=== PATIENT | female | born 1970 | race Caucasian/White ===

== ENCOUNTER 2023-06-10 19:02 | Emergency (ER) | payer MEDICAID ==
[~2023-06-10] VITALS: Ht 167.6 cm; Wt 108.4 kg
[2023-06-10 19:30] VITALS: BP 140/90; PULSE 75; RESP 17; TEMP 98.4; O2SAT 96
[2023-06-10 19:59] LABS: BASOPHILS # (AUTO) 0.1 K/uL (0.00-0.22); BASOPHILS % (AUTO) 0.7 % (0.0-2.0); EOSINOPHILS # (AUTO) 0.3 K/uL (0-0.4); EOSINOPHILS % (AUTO) 3.4 % (0.0-4.0); HEMATOCRIT 36.4 % (36-48); HEMOGLOBIN 12.2 g/dL (12.0-16.0); LYMPHOCYTES % (AUTO) 20.8 % (20.5-51.1); MEAN CORPUSCULAR HEMOGLOBIN 30 pg (27-31); MEAN CORPUSCULAR HGB CONC 33 g/dL (33-37); MEAN CORPUSCULAR VOLUME 88.7 fL (80-94); MONOCYTES # (AUTO) 0.7 K/uL (0.8-1.0); MONOCYTES % (AUTO) 7.7 % (1.7-9.3); NEUTROPHILS # (AUTO) 6.4 K/uL (1.8-7.7); NEUTROPHILS % (AUTO) 67.4 % (42.2-75.2); PLATELET COUNT (AUTO) 278 K/uL (140-450); RED BLOOD CELL COUNT(AUTO) 4.11 MIL/uL (4.20-5.40); RED CELL DISTRIBUTION WIDTH 13.4 % (11.6-13.7); WHITE BLOOD COUNT (AUTO) 9.4 K/uL (4.8-10.8)
[2023-06-10 20:19] LABS: ALBUMIN 3.4 g/dL (3.4-5.0); ANION GAP 11.7 (8-16); CALCIUM 8.4 mg/dL (8.5-10.1); CARBON DIOXIDE 30.8 mmol/L (21-32); CREATININE 1.3 mg/dL (0.6-1.3); POTASSIUM 3.5 mmol/L (3.5-5.1); TOTAL BILIRUBIN 0.3 mg/dL (0.0-1.0); TOTAL PROTEIN, SERUM 7.6 g/dL (6.4-8.2)
[2023-06-10 20:43] LABS: APPEARANCE,URINE CLEAR (CLEAR); BILIRUBIN,URINE NEGATIVE (NEGATIVE); BLOOD, URINE 2+ (NEGATIVE); COLOR,URINE YELLOW (YELLOW); LEUKOCYTE ESTERASE ,URINE NEGATIVE (NEGATIVE); NITRITE, URINE NEGATIVE (NEGATIVE); PROTEIN,URINE NEGATIVE (NEGATIVE); UGLUCOSE NEGATIVE (NEGATIVE); UROBILINOGEN,URINE 0.2 EU/dL (0.2 - 1)
[2023-06-10 21:08] LABS: BACTERIA,URINE FEW /HPF (None Seen); MUCUS,URINE 3+ /LPF (None Seen); RBC,URINE 11-20 (MOD) /HPF (0-5); SQUAMOUS EPITHELIAL CELL,UR 4-10 (MOD) /LPF (0-3 (FEW)); TRICHOMONAS,URINE None Seen /HPF (None Seen); WBC,URINE 0-5 /HPF (0-5); YEAST,URINE None Seen /HPF (None Seen)
[2023-06-11] MEDS ORDERED: IBUP-2213 PO (01:06)
[2023-06-11 01:37] VITALS: BP 137/68; PULSE 73; RESP 18; TEMP 98.3; O2SAT 97
== END 2023-06-11 01:37 | disposition home or self-care (01) ==
LOC: MED 19:02
DX: R10.84 Generalized abdominal pain (principal); R35.0 Frequency of micturition; Z85.41 Personal history of malignant neoplasm of cervix uteri; Z90.49 Acquired absence of other specified parts of digestive tract; Z79.899 Other long term (current) drug therapy
CPT/HCPCS: 36415; 80053; 81001; 83690; 85025; 99284

== ENCOUNTER 2024-04-01 16:24 | Inpatient (IN) | payer MEDICAID ==
[~2024-04-01] VITALS: Ht 167.6 cm; Wt 59.0 kg
[~2024-04-01 16:24] MED LIST: MEDR2.5T PO
[2024-04-01 16:36] VITALS: BP 156/87; PULSE 72; RESP 18; TEMP 98; O2SAT 96
[2024-04-01 18:17] LABS: BASOPHILS # (AUTO) 0.1 K/uL (0.00-0.22); BASOPHILS % (AUTO) 1.1 % (0.0-2.0); EOSINOPHILS # (AUTO) 0.5 K/uL (0-0.4); EOSINOPHILS % (AUTO) 5.3 % (0.0-4.0); HEMATOCRIT 22.3 % (36-48); HEMOGLOBIN 7.5 g/dL (12.0-16.0); LYMPHOCYTES # (AUTO) 1.3 K/uL (2.5-16.5); LYMPHOCYTES % (AUTO) 12.3 % (20.5-51.1); MEAN CORPUSCULAR HEMOGLOBIN 30 pg (27-31); MEAN CORPUSCULAR HGB CONC 33 g/dL (33-37); MEAN CORPUSCULAR VOLUME 88.4 fL (80-94); MONOCYTES # (AUTO) 0.9 K/uL (0.8-1.0); MONOCYTES % (AUTO) 8.9 % (1.7-9.3); NEUTROPHILS # (AUTO) 7.4 K/uL (1.8-7.7); NEUTROPHILS % (AUTO) 72.4 % (42.2-75.2); PLATELET COUNT (AUTO) 267 K/uL (140-450); RED BLOOD CELL COUNT(AUTO) 2.53 MIL/uL (4.20-5.40); RED CELL DISTRIBUTION WIDTH 14.3 % (11.6-13.7); WHITE BLOOD COUNT (AUTO) 10.2 K/uL (4.8-10.8)
[2024-04-01 18:32] LABS: ANION GAP 29.4 (8-16); CALCIUM 7.1 mg/dL (8.5-10.1); CARBON DIOXIDE 14.9 mmol/L (21-32)
[2024-04-01 18:35] LABS: POTASSIUM 6.3 mmol/L (3.5-5.1)
[2024-04-01 18:36] LABS: CREATININE 22.7 mg/dL (0.6-1.3)
[2024-04-01 18:43] LABS: INR 1.06 (0.8-1.2); PROTHROMBIN TIME 11.1 secs (10.8-13.4)
[2024-04-01] MEDS ORDERED: LORazepam 2 MG/ML VIAL IVP PRN (19:55)
[2024-04-01 21:48] VITALS: BP 153/71; PULSE 67; RESP 18; TEMP 97.2; O2SAT 94
[2024-04-02 04:00] VITALS: BP 156/73; PULSE 86; RESP 18; TEMP 98.5; O2SAT 98
[2024-04-02 09:49] LABS: BASOPHILS # (AUTO) 0.1 K/uL (0.00-0.22); BASOPHILS % (AUTO) 0.8 % (0.0-2.0); EOSINOPHILS # (AUTO) 0.3 K/uL (0-0.4); EOSINOPHILS % (AUTO) 4.2 % (0.0-4.0); LYMPHOCYTES # (AUTO) 0.7 K/uL (2.5-16.5); MEAN CORPUSCULAR HEMOGLOBIN 30 pg (27-31); MEAN CORPUSCULAR HGB CONC 34 g/dL (33-37); MEAN CORPUSCULAR VOLUME 87.3 fL (80-94); MONOCYTES # (AUTO) 0.7 K/uL (0.8-1.0); MONOCYTES % (AUTO) 8.7 % (1.7-9.3); NEUTROPHILS # (AUTO) 5.9 K/uL (1.8-7.7); NEUTROPHILS % (AUTO) 77.3 % (42.2-75.2); PLATELET COUNT (AUTO) 227 K/uL (140-450); RED BLOOD CELL COUNT(AUTO) 2.25 MIL/uL (4.20-5.40); RED CELL DISTRIBUTION WIDTH 13.8 % (11.6-13.7); WHITE BLOOD COUNT (AUTO) 7.6 K/uL (4.8-10.8)
[2024-04-02 10:09] LABS: HEMATOCRIT 19.7 % (36-48); HEMOGLOBIN 6.6 g/dL (12.0-16.0)
[2024-04-02 10:12] LABS: ALBUMIN 2.4 g/dL (3.4-5.0); CALCIUM 7.5 mg/dL (8.5-10.1); CARBON DIOXIDE 24.6 mmol/L (21-32); MAGNESIUM 1.9 mg/dL (1.8-2.4); PHOSPHORUS 7.7 mg/dL (2.5-4.9); POTASSIUM 4.6 mmol/L (3.5-5.1); TOTAL BILIRUBIN 0.4 mg/dL (0.0-1.0); TOTAL PROTEIN, SERUM 5.9 g/dL (6.4-8.2)
[2024-04-02 10:15] LABS: CREATININE 15.2 mg/dL (0.6-1.3)
[2024-04-02 12:00] VITALS: BP 144/79; PULSE 75; RESP 18; TEMP 97.8; O2SAT 95
[2024-04-02 14:45] VITALS: BP_SYST 133; BP_DIAS 4; BP_DIAS 74; PULSE 73; RESP 18; TEMP 98.4; O2SAT 95
[2024-04-02 15:00] VITALS: BP 137/70; PULSE 71; RESP 18; TEMP 98.4; O2SAT 96
[2024-04-02] MEDS: ONDANSETRON 4 MG/2 ML VIAL IVP PRN (15:21)
[2024-04-02 17:05] VITALS: BP 154/80; PULSE 71; RESP 18; TEMP 97.8; O2SAT 96
[2024-04-02 20:00] VITALS: BP 140/59; PULSE 71; RESP 18; TEMP 98; O2SAT 95
[2024-04-02 23:55] LABS: BASOPHILS # (AUTO) 0.1 K/uL (0.00-0.22); BASOPHILS % (AUTO) 0.8 % (0.0-2.0); EOSINOPHILS # (AUTO) 0.2 K/uL (0-0.4); EOSINOPHILS % (AUTO) 2.3 % (0.0-4.0); HEMATOCRIT 21.6 % (36-48); HEMOGLOBIN 7.2 g/dL (12.0-16.0); LYMPHOCYTES % (AUTO) 13.6 % (20.5-51.1); MEAN CORPUSCULAR HEMOGLOBIN 29 pg (27-31); MEAN CORPUSCULAR HGB CONC 33 g/dL (33-37); MEAN CORPUSCULAR VOLUME 88.4 fL (80-94); MONOCYTES # (AUTO) 0.7 K/uL (0.8-1.0); MONOCYTES % (AUTO) 10.2 % (1.7-9.3); NEUTROPHILS # (AUTO) 5.2 K/uL (1.8-7.7); NEUTROPHILS % (AUTO) 73.1 % (42.2-75.2); PLATELET COUNT (AUTO) 193 K/uL (140-450); RED BLOOD CELL COUNT(AUTO) 2.45 MIL/uL (4.20-5.40); RED CELL DISTRIBUTION WIDTH 14.1 % (11.6-13.7); WHITE BLOOD COUNT (AUTO) 7.1 K/uL (4.8-10.8)
[2024-04-03 04:00] VITALS: BP 152/81; PULSE 68; RESP 18; TEMP 97.8; O2SAT 97
[2024-04-03 08:00] VITALS: BP 145/70; PULSE 73; RESP 18; TEMP 97.3; O2SAT 100
[2024-04-03] MEDS: amLODIPine 5 MG TAB PO SCH (08:26)
[2024-04-03 08:28] LABS: BASOPHILS % (AUTO) 0.6 % (0.0-2.0); EOSINOPHILS # (AUTO) 0.3 K/uL (0-0.4); EOSINOPHILS % (AUTO) 3.2 % (0.0-4.0); HEMATOCRIT 23.8 % (36-48); LYMPHOCYTES % (AUTO) 11.8 % (20.5-51.1); MEAN CORPUSCULAR HEMOGLOBIN 30 pg (27-31); MEAN CORPUSCULAR HGB CONC 34 g/dL (33-37); MEAN CORPUSCULAR VOLUME 88.6 fL (80-94); MONOCYTES % (AUTO) 11.1 % (1.7-9.3); NEUTROPHILS # (AUTO) 6.5 K/uL (1.8-7.7); NEUTROPHILS % (AUTO) 73.3 % (42.2-75.2); PLATELET COUNT (AUTO) 212 K/uL (140-450); RED BLOOD CELL COUNT(AUTO) 2.68 MIL/uL (4.20-5.40); RED CELL DISTRIBUTION WIDTH 14.3 % (11.6-13.7); WHITE BLOOD COUNT (AUTO) 8.9 K/uL (4.8-10.8)
[2024-04-03 08:36] LABS: ANION GAP 20.8 (8-16); CALCIUM 8.1 mg/dL (8.5-10.1); CARBON DIOXIDE 21.7 mmol/L (21-32); POTASSIUM 4.5 mmol/L (3.5-5.1)
[2024-04-03 08:41] LABS: CREATININE 11.7 mg/dL (0.6-1.3)
[2024-04-03 16:00] VITALS: BP 143/80; PULSE 68; RESP 18; TEMP 98.3; O2SAT 96
[2024-04-03 20:00] VITALS: BP 141/78; PULSE 79; RESP 18; TEMP 98; O2SAT 95
[2024-04-03] MEDS: ZOLPIDEM 5 MG TAB PO PRN (20:44)
[2024-04-03] MEDS ORDERED: ZOLPIDEM 5 MG TAB PO SCH (21:00)
[2024-04-04 04:00] VITALS: BP 117/85; PULSE 71; RESP 18; TEMP 98.3; O2SAT 95
[2024-04-04 06:50] LABS: BASOPHILS # (AUTO) 0.1 K/uL (0.00-0.22); BASOPHILS % (AUTO) 0.8 % (0.0-2.0); EOSINOPHILS # (AUTO) 0.4 K/uL (0-0.4); EOSINOPHILS % (AUTO) 4.6 % (0.0-4.0); HEMATOCRIT 24.9 % (36-48); HEMOGLOBIN 8.3 g/dL (12.0-16.0); LYMPHOCYTES # (AUTO) 1.2 K/uL (2.5-16.5); LYMPHOCYTES % (AUTO) 14.3 % (20.5-51.1); MEAN CORPUSCULAR HEMOGLOBIN 30 pg (27-31); MEAN CORPUSCULAR HGB CONC 33 g/dL (33-37); MEAN CORPUSCULAR VOLUME 88.4 fL (80-94); MONOCYTES % (AUTO) 11.3 % (1.7-9.3); NEUTROPHILS # (AUTO) 5.9 K/uL (1.8-7.7); PLATELET COUNT (AUTO) 228 K/uL (140-450); RED BLOOD CELL COUNT(AUTO) 2.82 MIL/uL (4.20-5.40); RED CELL DISTRIBUTION WIDTH 14.2 % (11.6-13.7); WHITE BLOOD COUNT (AUTO) 8.5 K/uL (4.8-10.8)
[2024-04-04 07:13] LABS: CALCIUM 8.6 mg/dL (8.5-10.1)
[2024-04-04 07:40] LABS: CREATININE 9.6 mg/dL (0.6-1.3)
[2024-04-04 08:00] VITALS: BP 159/90; PULSE 62; PULSE 79; RESP 18; RESP 19; TEMP 98; TEMP 99; O2SAT 95
[2024-04-04] MEDS: medroxyPROGESTERone 10 MG TAB PO SCH (11:40)
[2024-04-04] MEDS: hydrALAZINE 20 MG/ML VIAL IVP PRN (18:45)
[2024-04-04 20:00] VITALS: BP 143/65; PULSE 80; RESP 18; TEMP 98.3; O2SAT 95; O2SAT 96
[2024-04-05 04:00] VITALS: BP 142/86; PULSE 74; RESP 18; TEMP 98.1; O2SAT 96
[2024-04-05 08:00] VITALS: PULSE 72; RESP 18; TEMP 99.3; O2SAT 98
[2024-04-05 16:00] VITALS: BP 142/76; PULSE 72; RESP 18; TEMP 98.7; O2SAT 98
[2024-04-05 20:00] VITALS: PULSE 84; RESP 18; TEMP 98.3; O2SAT 96
[2024-04-05] MEDS: SIMETHICONE 80 MG TAB.CHEW PO PRN (21:57)
[2024-04-05] MEDS: levETIRAcetam 500 MG TAB ONE (23:09)
[2024-04-06] VITALS: BP 145/63; PULSE 70; RESP 18; TEMP 98.2; O2SAT 96
[2024-04-06 06:09] LABS: HEPATITIS A ANTIBODY IGM Negative (Negative); HEPATITIS B CORE AB TOTAL Negative (Negative); HEPATITIS B CORE, IGM Negative (Negative); HEPATITIS B SURFACE ANTIBODY Reactive (.); HEPATITIS B SURFACE ANTIGEN Negative (Negative); HEPATITIS C VIRUS ANTIBODY Non Reactive (Non Reactive)
[2024-04-06 07:31] LABS: BASOPHILS # (AUTO) 0.1 K/uL (0.00-0.22); BASOPHILS % (AUTO) 0.6 % (0.0-2.0); EOSINOPHILS # (AUTO) 0.3 K/uL (0-0.4); EOSINOPHILS % (AUTO) 3.1 % (0.0-4.0); HEMATOCRIT 21.9 % (36-48); HEMOGLOBIN 7.5 g/dL (12.0-16.0); LYMPHOCYTES % (AUTO) 9.6 % (20.5-51.1); MEAN CORPUSCULAR HEMOGLOBIN 30 pg (27-31); MEAN CORPUSCULAR HGB CONC 34 g/dL (33-37); MEAN CORPUSCULAR VOLUME 88.2 fL (80-94); MONOCYTES # (AUTO) 0.8 K/uL (0.8-1.0); MONOCYTES % (AUTO) 7.6 % (1.7-9.3); NEUTROPHILS # (AUTO) 8.2 K/uL (1.8-7.7); NEUTROPHILS % (AUTO) 79.1 % (42.2-75.2); PLATELET COUNT (AUTO) 197 K/uL (140-450); RED BLOOD CELL COUNT(AUTO) 2.48 MIL/uL (4.20-5.40); RED CELL DISTRIBUTION WIDTH 13.8 % (11.6-13.7); WHITE BLOOD COUNT (AUTO) 10.4 K/uL (4.8-10.8)
[2024-04-06 07:46] LABS: ANION GAP 14.9 (8-16); CALCIUM 8.1 mg/dL (8.5-10.1); CARBON DIOXIDE 26.5 mmol/L (21-32); POTASSIUM 4.4 mmol/L (3.5-5.1)
[2024-04-06 07:54] LABS: CREATININE 10.3 mg/dL (0.6-1.3)
[2024-04-06 08:00] VITALS: BP 142/68; PULSE 75; PULSE 78; RESP 18; TEMP 97.5; TEMP 97.6; O2SAT 97
[2024-04-06 10:29] LABS: HEPATITIS A ANTIBODY TOTAL Positive (Negative)
[2024-04-06 14:31] VITALS: BP 142/68; PULSE 75; RESP 18; TEMP 97.5
[2024-04-06] MEDS ORDERED: AMLO-3 PO (15:21)
[2024-04-06] MEDS ORDERED: MEDR10TA33 PO (15:21)
== END 2024-04-06 16:30 | disposition home or self-care (01) | DRG 425 ==
LOC: MED 16:24 → MMU 19:53 → MTU 21:34
PROVIDERS: ADMIT Student in an Organized Health Care Education/Training Program; ATTEND Student in an Organized Health Care Education/Training Program
PROC: 5A1D70Z Performance of Urinary Filtration, Intermittent, Less than 6 Hours Per Day (ICD-10-PCS; principal; 2024-04-02)
PROC: 30233N1 Transfusion of Nonautologous Red Blood Cells into Peripheral Vein, Percutaneous Approach (ICD-10-PCS; 2024-04-02)
PROC: 5A1D70Z Performance of Urinary Filtration, Intermittent, Less than 6 Hours Per Day (ICD-10-PCS; 2024-04-03)
PROC: 5A1D70Z Performance of Urinary Filtration, Intermittent, Less than 6 Hours Per Day (ICD-10-PCS; 2024-04-04)
PROC: 5A1D70Z Performance of Urinary Filtration, Intermittent, Less than 6 Hours Per Day (ICD-10-PCS; 2024-04-04)
PROC: 5A1D70Z Performance of Urinary Filtration, Intermittent, Less than 6 Hours Per Day (ICD-10-PCS; 2024-04-06)
DX: E87.5 Hyperkalemia (principal); I12.0 Hypertensive chronic kidney disease with stage 5 chronic kidney disease or end stage renal disease; E44.1 Mild protein-calorie malnutrition; N18.6 End stage renal disease; D63.1 Anemia in chronic kidney disease; D25.0 Submucous leiomyoma of uterus; E87.1 Hypo-osmolality and hyponatremia; I10 Essential (primary) hypertension; N92.0 Excessive and frequent menstruation with regular cycle; N93.9 Abnormal uterine and vaginal bleeding, unspecified; Z79.899 Other long term (current) drug therapy; Z88.5 Allergy status to narcotic agent; Z88.8 Allergy status to other drugs, medicaments and biological substances; Z99.2 Dependence on renal dialysis; Z85.41 Personal history of malignant neoplasm of cervix uteri; Z68.21 Body mass index [BMI] 21.0-21.9, adult
CPT/HCPCS: 36415; 36430; 80048; 80053; 83735; 84100; 85025; 85610; 86704; 86706; 86708; 86709; 86803; 86886; 86900; 86901; 86920; 87081; 87340; 90935; 93005; 99291; 99292; J0360; J1644; J2405; P9016

== ENCOUNTER 2024-04-18 16:38 | Inpatient (IN) | payer MEDICAID ==
[~2024-04-18] VITALS: Ht 167.6 cm; Wt 92.6 kg
[~2024-04-18 16:38] MED LIST changes: +AMLO-3 PO; +MEDR10TA33 PO; -MEDR2.5T PO
[2024-04-18 17:00] VITALS: BP 182/103; PULSE 85; RESP 18; TEMP 97.8; O2SAT 95
[2024-04-18 18:11] LABS: BASOPHILS # (AUTO) 0.1 K/uL (0.00-0.22); BASOPHILS % (AUTO) 0.7 % (0.0-2.0); EOSINOPHILS # (AUTO) 0.3 K/uL (0-0.4); EOSINOPHILS % (AUTO) 2.9 % (0.0-4.0); HEMOGLOBIN 7.5 g/dL (12.0-16.0); LYMPHOCYTES # (AUTO) 1.1 K/uL (2.5-16.5); LYMPHOCYTES % (AUTO) 11.7 % (20.5-51.1); MEAN CORPUSCULAR HEMOGLOBIN 29 pg (27-31); MEAN CORPUSCULAR HGB CONC 33 g/dL (33-37); MEAN CORPUSCULAR VOLUME 88.7 fL (80-94); MONOCYTES # (AUTO) 0.7 K/uL (0.8-1.0); MONOCYTES % (AUTO) 7.2 % (1.7-9.3); NEUTROPHILS # (AUTO) 7.3 K/uL (1.8-7.7); NEUTROPHILS % (AUTO) 77.5 % (42.2-75.2); PLATELET COUNT (AUTO) 312 K/uL (140-450); RED CELL DISTRIBUTION WIDTH 14.3 % (11.6-13.7); WHITE BLOOD COUNT (AUTO) 9.4 K/uL (4.8-10.8)
[2024-04-18 18:23] LABS: ANION GAP 15.3 (8-16); CARBON DIOXIDE 31.9 mmol/L (21-32); POTASSIUM 4.2 mmol/L (3.5-5.1)
[2024-04-18 18:25] LABS: CREATININE 8.8 mg/dL (0.6-1.3)
[2024-04-18 18:29] LABS: ALBUMIN 2.9 g/dL (3.4-5.0); BILIRUBIN,DIRECT 0.1 mg/dL (0.0-0.3); TOTAL BILIRUBIN 0.3 mg/dL (0.0-1.0); TOTAL PROTEIN, SERUM 6.6 g/dL (6.4-8.2)
[2024-04-18 19:03] LABS: APPEARANCE,URINE CLOUDY (CLEAR); BILIRUBIN,URINE NEGATIVE (NEGATIVE); BLOOD, URINE 3+ (NEGATIVE); COLOR,URINE RED (YELLOW); LEUKOCYTE ESTERASE ,URINE TRACE (NEGATIVE); NITRITE, URINE NEGATIVE (NEGATIVE); PH,URINE 8.5 (5.0-9.0); PROTEIN,URINE 3+ (NEGATIVE); UGLUCOSE NEGATIVE (NEGATIVE); UROBILINOGEN,URINE 0.2 EU/dL (0.2 - 1)
[2024-04-18 19:08] LABS: RBC,URINE TOO NUMEROUS TO COUN /HPF (0-5)
[2024-04-18 19:09] LABS: BACTERIA,URINE None Seen /HPF (None Seen); SQUAMOUS EPITHELIAL CELL,UR None Seen /LPF (0-3 (FEW)); WBC,URINE NONE SEEN /HPF (0-5)
[2024-04-18 21:38] VITALS: O2SAT 97
[2024-04-18] MEDS: KETOROLAC 60 MG/2 ML VIAL IM ONE (22:05)
[2024-04-18] MEDS: SODIUM PHOSPHATE 118 ML ENEM RC ONE (22:30)
[2024-04-19] VITALS (9 sets, daily range): BP systolic 158–168; BP diastolic 95–102; PULSE 78–92; RESP 18–19; TEMP 97–98.5; O2SAT 95–99
[2024-04-19] MEDS: BOWEL EVACUANT DRINK 4,000 ML PDS PO ONE (00:13)
[2024-04-19] MEDS ORDERED: AMLO5TAB PO (00:41)
[2024-04-19] MEDS ORDERED: MEDR10TA PO (00:41)
[2024-04-19] MEDS ORDERED: DOCU-2 PO (00:41)
[2024-04-19] MEDS ORDERED: MEDR2.5T PO (00:41)
[2024-04-19] MEDS: LACTULOSE 20 GM/30 ML UDC PO SCH ×2 (09:47→15:35)
[2024-04-19] MEDS: EPOETIN ALFA-EPBX 10,000 UNITS/ML VIAL IV SCH (12:05)
[2024-04-19] MEDS: LACTULOSE 20 GM/30 ML UDC PO PRN (12:35)
[2024-04-19] MEDS ORDERED: ZOLPIDEM 5 MG TAB PO PRN (15:15)
[2024-04-19] MEDS ORDERED: LORazepam 1 MG TAB PO PRN (15:15)
[2024-04-19] MEDS: KETOROLAC 30 MG/ML VIAL IVP PRN (15:32)
[2024-04-19] MEDS: amLODIPine 5 MG TAB PO SCH (15:34)
[2024-04-19] MEDS: SENNA 8.6 MG TAB PO SCH (15:34)
[2024-04-19] MEDS: SIMETHICONE 80 MG TAB.CHEW PO PRN (21:12)
[2024-04-19] MEDS: hydrALAZINE 20 MG/ML VIAL IVP PRN (21:16)
[2024-04-20] VITALS (9 sets, daily range): BP systolic 118–153; BP diastolic 69–99; PULSE 84–99; RESP 18–20; TEMP 96.8–98.6; O2SAT 93–99
[2024-04-20 07:12] LABS: BASOPHILS % (AUTO) 0.2 % (0.0-2.0); EOSINOPHILS # (AUTO) 0.1 K/uL (0-0.4); EOSINOPHILS % (AUTO) 0.5 % (0.0-4.0); HEMATOCRIT 23.5 % (36-48); HEMOGLOBIN 7.6 g/dL (12.0-16.0); LYMPHOCYTES # (AUTO) 0.6 K/uL (2.5-16.5); LYMPHOCYTES % (AUTO) 3.5 % (20.5-51.1); MEAN CORPUSCULAR HEMOGLOBIN 29 pg (27-31); MEAN CORPUSCULAR HGB CONC 32 g/dL (33-37); MEAN CORPUSCULAR VOLUME 88.3 fL (80-94); MONOCYTES # (AUTO) 0.8 K/uL (0.8-1.0); MONOCYTES % (AUTO) 5.3 % (1.7-9.3); NEUTROPHILS # (AUTO) 14.4 K/uL (1.8-7.7); NEUTROPHILS % (AUTO) 90.5 % (42.2-75.2); PLATELET COUNT (AUTO) 314 K/uL (140-450); RED BLOOD CELL COUNT(AUTO) 2.66 MIL/uL (4.20-5.40); RED CELL DISTRIBUTION WIDTH 14.4 % (11.6-13.7); WHITE BLOOD COUNT (AUTO) 15.9 K/uL (4.8-10.8)
[2024-04-20 07:33] LABS: ALBUMIN 2.9 g/dL (3.4-5.0); ANION GAP 17.4 (8-16); CALCIUM 8.1 mg/dL (8.5-10.1); CARBON DIOXIDE 28.5 mmol/L (21-32); POTASSIUM 4.9 mmol/L (3.5-5.1); TOTAL BILIRUBIN 0.4 mg/dL (0.0-1.0); TOTAL PROTEIN, SERUM 6.8 g/dL (6.4-8.2)
[2024-04-20 07:39] LABS: CREATININE 8.4 mg/dL (0.6-1.3)
[2024-04-20] MEDS: PANTOPRAZOLE 40 MG INJ VIAL IVP SCH (08:41)
[2024-04-20] MEDS: DOCUSATE SODIUM 100 MG GELCAP PO SCH (08:42)
[2024-04-20] MEDS: ONDANSETRON 4 MG/2 ML VIAL IVP PRN (15:50)
[2024-04-21 04:00] VITALS: BP 138/92; PULSE 79; RESP 18; TEMP 98.5; O2SAT 98
[2024-04-21 06:38] LABS: BASOPHILS % (AUTO) 0.5 % (0.0-2.0); EOSINOPHILS # (AUTO) 0.3 K/uL (0-0.4); EOSINOPHILS % (AUTO) 6.4 % (0.0-4.0); HEMATOCRIT 21.4 % (36-48); LYMPHOCYTES # (AUTO) 0.6 K/uL (2.5-16.5); LYMPHOCYTES % (AUTO) 13.9 % (20.5-51.1); MEAN CORPUSCULAR HEMOGLOBIN 29 pg (27-31); MEAN CORPUSCULAR HGB CONC 33 g/dL (33-37); MEAN CORPUSCULAR VOLUME 88.5 fL (80-94); MONOCYTES # (AUTO) 0.7 K/uL (0.8-1.0); MONOCYTES % (AUTO) 16.5 % (1.7-9.3); NEUTROPHILS # (AUTO) 2.5 K/uL (1.8-7.7); NEUTROPHILS % (AUTO) 62.7 % (42.2-75.2); PLATELET COUNT (AUTO) 301 K/uL (140-450); RED BLOOD CELL COUNT(AUTO) 2.41 MIL/uL (4.20-5.40); RED CELL DISTRIBUTION WIDTH 14.4 % (11.6-13.7); WHITE BLOOD COUNT (AUTO) 4.1 K/uL (4.8-10.8)
[2024-04-21 07:06] LABS: ALBUMIN 2.6 g/dL (3.4-5.0); ANION GAP 18.3 (8-16); CALCIUM 7.6 mg/dL (8.5-10.1); CARBON DIOXIDE 27.6 mmol/L (21-32); POTASSIUM 4.9 mmol/L (3.5-5.1); TOTAL BILIRUBIN 0.4 mg/dL (0.0-1.0); TOTAL PROTEIN, SERUM 6.3 g/dL (6.4-8.2)
[2024-04-21 07:10] LABS: CREATININE 9.4 mg/dL (0.6-1.3)
[2024-04-21 07:38] VITALS: TEMP 98
[2024-04-21 08:00] VITALS: PULSE 88; RESP 17; O2SAT 96
[2024-04-21 08:59] VITALS: BP 125/76; PULSE 88; RESP 17; TEMP 97.6; O2SAT 96
[2024-04-21 17:01] VITALS: BP 128/80; PULSE 82; RESP 17; TEMP 97.7; O2SAT 96
[2024-04-21 18:11] LABS: HEMATOCRIT 26.2 % (36-48); HEMOGLOBIN 8.7 g/dL (12.0-16.0)
[2024-04-21 20:00] VITALS: PULSE 91; RESP 18; TEMP 97.8; O2SAT 94
[2024-04-22] VITALS (8 sets, daily range): BP systolic 109–134; BP diastolic 65–72; PULSE 83–94; RESP 18; TEMP 96.8–98.6; O2SAT 95–98
[2024-04-22] MEDS: ACETAMINOPHEN 100 ML IV ONE (16:43)
[2024-04-22] MEDS: DEXAMETHASONE 4 MG/ML VIAL ONE (17:41)
[2024-04-22] MEDS: ROCURONIUM 50 MG/5 ML VIAL IV ONE ×2 (17:41→17:42)
[2024-04-22] MEDS: fentaNYL citrate 0.05 MG/ML VIAL ONE (17:41)
[2024-04-22] MEDS: ONDANSETRON 4 MG/2 ML VIAL ONE (17:41)
[2024-04-22] MEDS: ePHEDrine 50 MG/ML VIAL ONE (17:42)
[2024-04-22] MEDS: LIDOCAINE 2% 100 MG/5 ML SYR IVP ONE (17:42)
[2024-04-23] VITALS (7 sets, daily range): BP systolic 121–136; BP diastolic 65–83; PULSE 80–89; RESP 17–20; TEMP 97.1–98.9; O2SAT 95–100
[2024-04-23 06:50] LABS: BASOPHILS % (AUTO) 0.2 % (0.0-2.0); EOSINOPHILS % (AUTO) 0.1 % (0.0-4.0); HEMATOCRIT 20.8 % (36-48); LYMPHOCYTES # (AUTO) 0.6 K/uL (2.5-16.5); LYMPHOCYTES % (AUTO) 10.1 % (20.5-51.1); MEAN CORPUSCULAR HEMOGLOBIN 29 pg (27-31); MEAN CORPUSCULAR HGB CONC 34 g/dL (33-37); MEAN CORPUSCULAR VOLUME 87.3 fL (80-94); MONOCYTES # (AUTO) 0.8 K/uL (0.8-1.0); MONOCYTES % (AUTO) 11.8 % (1.7-9.3); NEUTROPHILS % (AUTO) 77.8 % (42.2-75.2); PLATELET COUNT (AUTO) 318 K/uL (140-450); RED BLOOD CELL COUNT(AUTO) 2.38 MIL/uL (4.20-5.40); RED CELL DISTRIBUTION WIDTH 14.7 % (11.6-13.7); WHITE BLOOD COUNT (AUTO) 6.4 K/uL (4.8-10.8)
[2024-04-23 07:54] LABS: ALBUMIN 2.4 g/dL (3.4-5.0); ANION GAP 18.7 (8-16); CALCIUM 7.9 mg/dL (8.5-10.1); CARBON DIOXIDE 25.4 mmol/L (21-32); POTASSIUM 4.1 mmol/L (3.5-5.1); TOTAL BILIRUBIN 0.3 mg/dL (0.0-1.0); TOTAL PROTEIN, SERUM 6.1 g/dL (6.4-8.2)
[2024-04-23 08:00] LABS: CREATININE 9.1 mg/dL (0.6-1.3)
[2024-04-23 08:10] LABS: AFP (TUMOR MARKER) <1.8 ng/mL (0.0-9.2)
[2024-04-23 17:45] LABS: HEMATOCRIT 23.4 % (36-48); HEMOGLOBIN 7.7 g/dL (12.0-16.0)
[2024-04-23 19:45] LABS: CARCINOEMBRYONIC AG 22.9 ng/mL (0.0-4.7)
[2024-04-24 08:00] VITALS: BP 152/87; PULSE 80; PULSE 83; RESP 18; RESP 19; TEMP 97.4; TEMP 98.8; O2SAT 95; O2SAT 97
[2024-04-24 16:00] VITALS: BP 156/68; PULSE 94; RESP 18; TEMP 97.4; O2SAT 100
[2024-04-24 20:00] VITALS: BP 154/81; PULSE 83; RESP 18; TEMP 98.9; O2SAT 95; O2SAT 96
[2024-04-25 08:00] VITALS: BP 142/75; PULSE 75; PULSE 78; PULSE 83; RESP 18; TEMP 97.3; TEMP 97.4; TEMP 98.1; O2SAT 94; O2SAT 96; O2SAT 97
[2024-04-25 16:00] VITALS: BP 143/73; PULSE 84; RESP 18; TEMP 97; O2SAT 96
[2024-04-25 20:00] VITALS: BP 156/87; PULSE 83; RESP 18; RESP 19; TEMP 97.4; TEMP 98.9; O2SAT 94; O2SAT 96
[2024-04-26 08:00] VITALS: BP 145/89; PULSE 88; RESP 18; RESP 19; TEMP 98.5; O2SAT 96; O2SAT 97
[2024-04-26 08:20] LABS: BASOPHILS # (AUTO) 0.1 K/uL (0.00-0.22); BASOPHILS % (AUTO) 0.5 % (0.0-2.0); EOSINOPHILS # (AUTO) 0.4 K/uL (0-0.4); EOSINOPHILS % (AUTO) 3.4 % (0.0-4.0); HEMATOCRIT 28.7 % (36-48); HEMOGLOBIN 9.5 g/dL (12.0-16.0); LYMPHOCYTES # (AUTO) 1.7 K/uL (2.5-16.5); LYMPHOCYTES % (AUTO) 15.8 % (20.5-51.1); MEAN CORPUSCULAR HEMOGLOBIN 29 pg (27-31); MEAN CORPUSCULAR HGB CONC 33 g/dL (33-37); MEAN CORPUSCULAR VOLUME 88.3 fL (80-94); MONOCYTES # (AUTO) 1.1 K/uL (0.8-1.0); MONOCYTES % (AUTO) 10.3 % (1.7-9.3); NEUTROPHILS # (AUTO) 7.6 K/uL (1.8-7.7); PLATELET COUNT (AUTO) 344 K/uL (140-450); RED BLOOD CELL COUNT(AUTO) 3.25 MIL/uL (4.20-5.40); RED CELL DISTRIBUTION WIDTH 14.9 % (11.6-13.7); WHITE BLOOD COUNT (AUTO) 10.8 K/uL (4.8-10.8)
[2024-04-26 08:39] LABS: ALBUMIN 2.7 g/dL (3.4-5.0); ANION GAP 15.2 (8-16); CALCIUM 8.3 mg/dL (8.5-10.1); CARBON DIOXIDE 26.6 mmol/L (21-32); POTASSIUM 3.8 mmol/L (3.5-5.1); TOTAL BILIRUBIN 0.3 mg/dL (0.0-1.0); TOTAL PROTEIN, SERUM 6.8 g/dL (6.4-8.2)
[2024-04-26 08:42] LABS: CREATININE 8.3 mg/dL (0.6-1.3)
[2024-04-26 15:19] VITALS: O2SAT 96
[2024-04-26 16:00] VITALS: BP 139/62; PULSE 87; RESP 18; TEMP 98.9; O2SAT 99
[2024-04-26 20:00] VITALS: PULSE 83; RESP 19; TEMP 98; O2SAT 95
[2024-04-26 21:22] VITALS: BP 125/85; PULSE 83; RESP 19; TEMP 98
== END 2024-04-26 22:45 | disposition home health service (06) | DRG 446 ==
LOC: MED 16:38 → MMU 04-19 07:40 → MTU 04-19 11:02
PROVIDERS: ADMIT Student in an Organized Health Care Education/Training Program; ATTEND Student in an Organized Health Care Education/Training Program
PROC: 5A1D70Z Performance of Urinary Filtration, Intermittent, Less than 6 Hours Per Day (ICD-10-PCS; 2024-04-19)
PROC: 30233N1 Transfusion of Nonautologous Red Blood Cells into Peripheral Vein, Percutaneous Approach (ICD-10-PCS; principal; 2024-04-21)
PROC: 5A1D70Z Performance of Urinary Filtration, Intermittent, Less than 6 Hours Per Day (ICD-10-PCS; 2024-04-21)
PROC: 0TBB8ZZ Excision of Bladder, Via Natural or Artificial Opening Endoscopic (ICD-10-PCS; 2024-04-22)
PROC: 5A1D70Z Performance of Urinary Filtration, Intermittent, Less than 6 Hours Per Day (ICD-10-PCS; 2024-04-23)
PROC: 5A1D70Z Performance of Urinary Filtration, Intermittent, Less than 6 Hours Per Day (ICD-10-PCS; 2024-04-26)
DX: D49.4 Neoplasm of unspecified behavior of bladder (principal); N18.6 End stage renal disease; I12.0 Hypertensive chronic kidney disease with stage 5 chronic kidney disease or end stage renal disease; N13.30 Unspecified hydronephrosis; C48.2 Malignant neoplasm of peritoneum, unspecified; D64.9 Anemia, unspecified; R33.9 Retention of urine, unspecified; K59.00 Constipation, unspecified; D25.9 Leiomyoma of uterus, unspecified; N93.9 Abnormal uterine and vaginal bleeding, unspecified; N32.9 Bladder disorder, unspecified; Z99.2 Dependence on renal dialysis; Z85.41 Personal history of malignant neoplasm of cervix uteri; Z88.5 Allergy status to narcotic agent; Z88.1 Allergy status to other antibiotic agents; Z82.49 Family history of ischemic heart disease and other diseases of the circulatory system; Z83.3 Family history of diabetes mellitus
CPT/HCPCS: 36415; 36430; 71045; 80048; 80053; 80076; 81001; 82105; 82378; 83690; 85018; 85025; 86301; 86304; 86886; 86900; 86901; 86920; 87081; 96372; 99285; C9113; J0360; J0696; J1100; J1644; J1885; J2001; J2405; J3010; J3490; J7060; P9016; Q5106; Q9967